=== PATIENT | male | born 1960 | race Two or more races ===

== ENCOUNTER 2024-04-14 05:35 | Day surgery (SDC) | payer MEDICARE, MEDICAID, SELFPAY ==
--- NOTE | 2024-04-13 06:23 | EKG_ITS ---
[facility] Test Date: 2024-04-13 Pat Name: NGHIA FERRARO Department: Room: - Gender: Male Library Media Technician: BRYNN : 1960 Requested By: Emerson Thomson Order Number: [id number] Reading MD: Emerson Thomson Measurements Intervals [place] Rate: 58 P: 74 AL: 162 QRS: 29 QRSD: 107 T: -6 QT: 429 QTc: 424 Interpretive Statements SINUS BRADYCARDIA WITH OCCASIONAL SUPRAVENTRICULAR PREMATURE COMPLEXES INCOMPLETE RIGHT BUNDLE BRANCH BLOCK VOLTAGE CRITERIA FOR LVH TALL T-WAVES, SUGGESTS HYPERKALEMIA No previous ECG available for comparison /[id number]
[2024-04-13 09:08] VITALS: BMI 28.5
--- NOTE | 2024-04-13 15:12 | SUR.PREOP ---
Pt did not go to lab, Dr Juan J Morillo notified, I was unable to contact pt, Yisel was able to reach pt and stated he is coming to lab.
--- NOTE | 2024-04-13 15:13 | SUR.PREOP ---
attempted several times to contact pt, unable, got in contact with pt's brother which stated he can't get in contact with his brother.
[2024-04-13 17:41] LABS: Basophils % (Auto) 0 % (0-2.5); Eosinophils # (Auto) 0.1 Thou/mm3 (0.0-0.5); Eosinophils % (Auto) 2 % (0-10); Hematocrit 39.8 % (41.0-53.0); Hemoglobin 13.6 g/dL (13.5-16.0); Immature Granulocytes % (Auto) 0 % (0-0); Immature Granulocytes Auto 0.01 Thou/mm3 (0.00-0.00); Lymphocytes # (Auto) 2.1 Thou/mm3 (1.0-4.8); Lymphocytes % (Auto) 35 % (10-50); Mean Corpuscular HGB Conc 34.2 g/dl (31.0-37.0); Mean Corpuscular Hemoglobin 30.8 pg (25.0-35.0); Mean Corpuscular Volume 90 fL (80-100); Monocytes # (Auto) 0.4 Thou/mm3 (0.0-0.8); Monocytes % (Auto) 7 % (0-12); Neutrophils # (Auto) 3.4 Thou/mm3 (1.8-7.7); Neutrophils % (Auto) 56 % (37-80); Nucleated Red Blood Cell % 0 /100 WBC (0); Platelet Count 304 Thou/mm3 (140-440); RDW Standard Deviation 46.2 fL (35.1-43.9); Red Blood Count 4.42 Miln/mm3 (4.50-5.90); White Blood Count 6.1 Thou/mm3 (3.8-10.6)
[2024-04-13 17:49] LABS: INR 0.9 (0.9-1.3); Partial Thromboplastin Time 25.3 Seconds (22.0-36.0); Prothrombin Time 10.3 Seconds (9.0-12.2)
[2024-04-13 17:56] LABS: Alanine Aminotransferase 20 U/L (10-49); Albumin, Serum 4.2 gm/dL (3.4-4.8); Albumin/Globulin Ratio 1.5 (1.2-2.2); Alkaline Phosphatase 78 U/L (46-116); Anion Gap 5 (7-16); Aspartate Amino Transferase 15 U/L (0-34); BUN/Creatinine Ratio 15 Ratio (12-20); Bilirubin,Total 0.3 mg/dL (0.3-1.2); Blood Urea Nitrogen 15 mg/dL (9-23); Calcium 9.4 mg/dL (8.3-10.6); Calcium (Corrected) 9.4 mg/dL (8.5-10.1); Carbon Dioxide 26.1 mMol/L (20.0-31.0); Chloride 107 mMol/L (98-107); Estimated Creatinine Clearance 83.9 mL/min (>60); Globulin 2.8 gm/dL (2.3-3.5); Glucose 121 mg/dL (74-106); Osmolality,Calculated 277 (275-295); Sodium 138 mMol/L (136-145); eGFR > 60 See Note
[2024-04-14] VITALS (8 sets, daily range): BP systolic 132–158; BP diastolic 73–86; PULSE 49–65; RESP 12–18; TEMP 36.3–36.6; O2SAT 94–99; BMI 28.3
[2024-04-14] MEDS: RINGERS LACTATED 1000 ML 1,000 ML 20 ML IV (07:04)
--- NOTE | 2024-04-14 07:29 | CHAP ---
Patient expressed gratitude for prayer before their procedure.
--- NOTE | 2024-04-14 12:28 | SUR.PHASEI ---
1228: Pt. arrived with oral airway in place, vitals stable, breathing unlabored, no signs of distress, dressing to ABD CDI, no active bleed noted, report received from MD Jenkins and Amanda HOLCOMB.
[2024-04-14] MEDS: fentaNYL CIT INJ 50 mCg/ML AMP 2ML 25 MCG IV ×2 (12:42→12:48)
[2024-04-14] MEDS: ACETAMINOPHEN IVPB 1,000 MG/100 ML VIAL 250 MG IV (12:50)
--- NOTE | 2024-04-14 12:50 | ESOP_ITS ---
Date of Procedure 04/14/24 Pre Op Diagnosis 1. Symptomatic umbilical hernia 2. Symptomatic left inguinal hernia Post Op Diagnosis Same Procedure Repair of the umbilical hernia with 1.7 inch Ventralex mesh Repair of the left indirect inguinal hernia with high ligation of the sac and placement of 2 x 4 mesh Findings Patient is found an umbilical hernia which was round and required mesh. He was also found to have a left indirect inguinal hernia with thick sac adherent to the cord structures and required high ligation Procedure Description All the patient was brought to the operating room endotracheal anesthesia was given. Abdomen and lower groin was washed with ChloraPrep solution draped in a sterile manner. Timeout is performed. Then I made a curved incision below the umbilicus after injecting half percent Marcaine. Umbilical skin was dissected out. The sac was dissected and was found to contain omentum. The defect admitt ed 1 finger and it was circular. Therefore primary closure was not attempted. I cleaned the undersurface of the fascia and placed a 1.7 inch Ventralex mesh and attached the Marlex straps to the edges of the fascia. 2 sutures on each Marlex strap. Then the back of the umbilical skin was attached to the fascia with a 2-0 Prolene to create inverted appearance. Then ablated skin was trimmed because of possible ischemia over the edges. I placed few sutures of 3-0 plain on the umbilical skin was closed with 4-0 Monocryl subcuticular stitch. Then attention was turned onto the left groin hernia. Patient has had a previous suprapubic incision for colon resection and therefore there was considerable adhesion in the area. Left groin incision was made for about 7 cm in length. External oblique was incised and cord structures were encircled. But the cord structures were firmly adherent to the posterior wall and I could not easily . The hernial sac was very thick and it was dissected with considerable difficulty from the cord structures and then opened. Inserting my finger in the sac I dissected as much as possible the cord structures away from the sac then it was suture-ligated with a running 2-0 Prolene at the internal ring because it was too [place]. Then isolation of the cord structures was very difficult and I could not identify cord structures coming through the internal ring. It was tucked to the posterior abdominal wall. I did not disturb it. I placed a 2 x 4 Marlex mesh on the floor on close external oblique with a running 2-0 Vicryl. Then the subcutaneous tissue was closed with 3-0 plain and the skin was closed with 4-0 Monocryl after inject half percent Marcaine for analgesia. Dressing was applied with Adaptic and 4 x 4 gauze and patient tolerated the procedure well left operating room in stable condition Anesthesia GETA Implants 1. 1.[address] mesh at the umbilicus, 2 x 4 Marlex mesh in the g Pathology / specimen None Estimated Blood Loss 50 Surgeon Mary Jo Lovelace MD Surgical Staff Operation Date: 04/14/24 10:15 Case Staff Anesthesiologist: Onel Jenkins RN First Assistant: Shayy Ambriz
--- NOTE | 2024-04-14 13:30 | SUR.PHASEII ---
1330: Pt. AAOx4, vitals stable, breathing unlabored, no complaint of pain or nausea, dressing to ABD CDI, no active bleed noted, pt. tolerated sips of water well, pt. ambulated to wheelchair with steady gait and no assist, no complications. Gave discharge instructions to the pt. and his ride using motor vehicle parts interpreter Wanda HESTER, both verbalized understanding and had no further questions. Pt. left with all personal belongings.
== END 2024-04-14 13:30 | disposition home or self-care (01) ==
PROVIDERS: Referring Provider Surgery; Visit Provider Surgery
PROC: (CPT 49505; principal; 2024-04-14 10:15)
DX: K40.90 Unilateral inguinal hernia, without obstruction or gangrene, not specified as recurrent (principal); K42.9 Umbilical hernia without obstruction or gangrene; Z01.810 Encounter for preprocedural cardiovascular examination
CPT/HCPCS: 49505; 49593; 36415; 80053; 85025; 85610; 85730; 93005; A4217; A4649; C1781; J0131; J0461; J1100; J2250; J2405; J2704; J3010; J3490; J7120